=== PATIENT | female | born 1980 | race Caucasian/White ===

== ENCOUNTER 2017-06-15 22:32 | Inpatient (IN) | payer SELFPAY ==
[~2017-06-15] VITALS: Ht 162.6 cm; Wt 61.0 kg
[2017-06-15] MEDS ORDERED: diphenhydrAMINE INJ 50MG/ML VIAL (J1200) IM STA (22:52)
[2017-06-15] MEDS ORDERED: HALOPERIDOL 5 MG/ML VIAL (J1630) IM STA (22:52)
[2017-06-15 23:30] LABS: MEAN CORPUSCULAR HEMOGLOBIN 30.5 pg (27.0-33.0); MEAN CORPUSCULAR HGB CONC 34.3 g/dl (32.0-36.5); MEAN CORPUSCULAR VOLUME 88.9 fl (80.0-96.0); RED CELL DISTRIBUTION WIDTH 12.7 % (11.5-14.5); WHITE BLOOD COUNT 17.3 10^3/uL (4.0-10.0)
[2017-06-15 23:44] LABS: CONTROL LINE HCG INT CTR LINE PRESENT
[2017-06-16 00:01] LABS: ALBUMIN 4.5 GM/DL (3.2-5.2); ALBUMIN/GLOBULIN RATIO 1.36 (1.00-1.93); ALKALINE PHOSPHATASE 65 U/L (45-117); ALT/SGPT 19 U/L (12-78); ANION GAP 11 MEQ/L (8-16); AST/SGOT 17 U/L (15-37); BILIRUBIN,DIRECT 0.1 MG/DL (0.0-0.2); BILIRUBIN,TOTAL 0.4 MG/DL (0.2-1.0); BLOOD UREA NITROGEN 9 MG/DL (7-18); CALCIUM LEVEL 9.1 MG/DL (8.5-10.1); CARBON DIOXIDE LEVEL 23 MEQ/L (21-32); CHLORIDE LEVEL 105 MEQ/L (98-107); CREATININE FOR GFR 1.15 MG/DL (0.55-1.02); GLOMERULAR FILTRATION RATE 56.8 (>60); GLUCOSE, FASTING 103 MG/DL (70-105); POTASSIUM SERUM 3.6 MEQ/L (3.5-5.1); SODIUM LEVEL 139 MEQ/L (136-145); TOTAL PROTEIN 7.8 GM/DL (6.4-8.2)
[2017-06-16 00:21] LABS: METHADONE URINE NEGATIVE (NEGATIVE)
[2017-06-16] MEDS ORDERED: ASPI81CH PO (03:29)
[2017-06-16] MEDS ORDERED: MOM 30ML SUSPENSION UDC PO PRN (04:00)
[2017-06-16] MEDS ORDERED: MAALOX 30 ML SUSP *UDC PO PRN (04:00)
[2017-06-16] MEDS ORDERED: OLANZapine 10 MG TAB PO PRN (04:00)
[2017-06-16 07:02] VITALS: BP 101/58
[2017-06-16] MEDS: PALIPERIDONE 3 MG ER TAB (INVEGA) PO SCH ×2 (09:00→21:00)
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
[2017-06-16 18:00] VITALS: BP 131/80
[2017-06-16] MEDS: QUEtiapine FUMARATE 100 MG TAB PO SCH (21:00)
[2017-06-17 06:00] VITALS: BP 111/59
[2017-06-17] MEDS: PALIPERIDONE 3 MG ER TAB (INVEGA) PO SCH ×2 (08:55→21:00)
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
[2017-06-17 18:00] VITALS: BP 113/75
[2017-06-17] MEDS: QUEtiapine FUMARATE 100 MG TAB PO SCH (21:00)
[2017-06-18 06:00] VITALS: BP 107/57
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
[2017-06-18] MEDS: PALIPERIDONE 3 MG ER TAB (INVEGA) PO SCH ×2 (09:00→21:00)
[2017-06-18 18:38] VITALS: BP 112/65
[2017-06-18] MEDS: QUEtiapine FUMARATE 100 MG TAB PO SCH (21:00)
[2017-06-19 06:45] VITALS: BP 99/55
[2017-06-19 07:55] LABS: MEAN CORPUSCULAR HEMOGLOBIN 30.7 pg (27.0-33.0); MEAN CORPUSCULAR HGB CONC 33.8 g/dl (32.0-36.5); MEAN CORPUSCULAR VOLUME 90.9 fl (80.0-96.0); RED CELL DISTRIBUTION WIDTH 12.9 % (11.5-14.5); WHITE BLOOD COUNT 6.3 10^3/uL (4.0-10.0)
[2017-06-19 08:24] LABS: ALBUMIN 3.9 GM/DL (3.2-5.2); ALKALINE PHOSPHATASE 52 U/L (45-117); ALT/SGPT 20 U/L (12-78); ANION GAP 6 MEQ/L (8-16); AST/SGOT 15 U/L (15-37); BILIRUBIN,TOTAL 0.4 MG/DL (0.2-1.0); BLOOD UREA NITROGEN 10 MG/DL (7-18); CARBON DIOXIDE LEVEL 28 MEQ/L (21-32); CHLORIDE LEVEL 107 MEQ/L (98-107); CREATININE FOR GFR 0.86 MG/DL (0.55-1.02); GLOMERULAR FILTRATION RATE > 60.0 (>60); GLUCOSE, FASTING 82 MG/DL (70-105); POTASSIUM SERUM 4.3 MEQ/L (3.5-5.1); SODIUM LEVEL 141 MEQ/L (136-145); TOTAL PROTEIN 6.9 GM/DL (6.4-8.2)
[2017-06-19] MEDS: PALIPERIDONE 3 MG ER TAB (INVEGA) PO SCH ×2 (08:56→21:00)
[2017-06-19 18:00] VITALS: BP 103/57
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
[2017-06-19] MEDS: QUEtiapine FUMARATE 100 MG TAB PO SCH (21:00)
[2017-06-20 06:00] VITALS: BP 104/57
[2017-06-20] MEDS: PALIPERIDONE 3 MG ER TAB (INVEGA) PO SCH ×2 (08:33→20:33)
[2017-06-20 18:00] VITALS: BP 100/56
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
[2017-06-20] MEDS: QUEtiapine FUMARATE 100 MG TAB PO SCH (20:34)
[2017-06-21 06:37] VITALS: BP 90/54
[2017-06-21] MEDS: PALIPERIDONE 3 MG ER TAB (INVEGA) PO SCH (09:00)
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
[2017-06-21 18:18] VITALS: BP 109/73
[2017-06-21] MEDS: QUEtiapine FUMARATE 100 MG TAB PO SCH (20:19)
[2017-06-22 06:50] VITALS: BP 94/50
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
[2017-06-22 18:00] VITALS: BP 119/74
[2017-06-22] MEDS: QUEtiapine FUMARATE 100 MG TAB PO SCH (21:00)
[2017-06-23 06:25] VITALS: BP 99/52
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
[2017-06-23 18:58] VITALS: BP 109/69
[2017-06-23] MEDS: QUEtiapine FUMARATE 100 MG TAB PO SCH (21:00)
[2017-06-24 07:07] VITALS: BP 108/55
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
[2017-06-24] MEDS: QUEtiapine FUMARATE 100 MG TAB PO SCH (21:00)
[2017-06-25] MEDS: ACETAMINOPHEN TAB 650MG DOSE (2X325MG) PO PRN (03:45)
[2017-06-25 06:45] VITALS: BP 113/58
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
[2017-06-25 18:00] VITALS: BP 108/60
[2017-06-25] MEDS: QUEtiapine FUMARATE 100 MG TAB PO SCH (20:31)
[2017-06-26] MEDS: ACETAMINOPHEN TAB 650MG DOSE (2X325MG) PO PRN (03:15)
[2017-06-26 07:02] VITALS: BP 102/60
[2017-06-26] MEDS: QUEtiapine FUMARATE 100 MG TAB PO SCH (21:00)
[2017-06-27 06:35] VITALS: BP 100/56
[2017-06-27 18:00] VITALS: BP 104/56
[2017-06-27] MEDS: QUEtiapine FUMARATE 100 MG TAB PO SCH (21:00)
[2017-06-28 07:14] VITALS: BP 110/65
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
[2017-06-28 18:00] VITALS: BP 114/78
[2017-06-29 06:56] VITALS: BP 104/64
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
[2017-06-29 18:00] VITALS: BP 102/66
[2017-06-30 06:00] VITALS: BP 117/59
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
[2017-07-01 06:30] VITALS: BP 107/55
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
[2017-07-01 18:54] VITALS: BP 108/69
[2017-07-01] MEDS: ACETAMINOPHEN TAB 650MG DOSE (2X325MG) PO PRN (19:32)
[2017-07-02 07:14] VITALS: BP 122/59
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
[2017-07-02 18:00] VITALS: BP 106/60
[2017-07-03 07:11] VITALS: BP 111/59
[2017-07-03 18:00] VITALS: BP 107/62
[2017-07-04 07:17] VITALS: BP 106/56
[2017-07-04 18:00] VITALS: BP 105/52
[2017-07-05 06:30] VITALS: BP 98/63
[2017-07-05 18:00] VITALS: BP 107/63
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
[2017-07-06] MEDS: ACETAMINOPHEN TAB 650MG DOSE (2X325MG) PO PRN (01:56)
[2017-07-06 06:35] VITALS: BP 93/57
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
[2017-07-06 18:25] VITALS: BP 106/61
[2017-07-07] MEDS: ACETAMINOPHEN TAB 650MG DOSE (2X325MG) PO PRN ×2 (02:13→20:28)
[2017-07-07 06:24] VITALS: BP 103/59
--- NOTE | 2017-07-07 15:08 | MHIPN ---
DATE: 07/07/2017 HISTORY: 37-year-old female with history of traumatic brain injury (TBI) and paranoia admitted with paranoid delusions, threatening her family with a knife. Patient has been uncooperative during her hospitalization. She was yelling at staff. She had to be medicated in the emergency room. A knife was found hidden on her underpants. She was making statements such as "I'm not a pediatric solar sales manager." MEDICATIONS: The patient is not willing to take antipsychotic medication. Patient has refused to take Invega, Seroquel, and is now refusing Abilify. SUBJECTIVE: "You cannot keep me here." OBJECTIVE: No major changes from yesterday. Patient is angry, dismissive, paranoid, guarded, turning her head against this interviewer, unwilling to cooperative. Insight and judgment is very poor. MENTAL STATUS EXAMINATION: Patient is dressed in [facility]. Patient is refusing to cooperate with mental status examination. Patient is angry, irritable, anxious, uncooperative, delusional, paranoid. Insight and judgment is poor. PLAN: 1. Continue offering medication. 2. Treatment over objection initiated. 3. Continue close monitoring.
[2017-07-07 18:12] VITALS: BP 107/75
[2017-07-08 06:00] VITALS: BP 99/55
--- NOTE | 2017-07-08 15:35 | MHIPN ---
DATE: 07/08/2017 37-year-old female with history of traumatic brain injury (TBI) and psychosis admitted to our unit with paranoid delusions, threatening her family with a knife. She was uncooperative during the admitting process. She was yelling at staff. She had to be medicated in the emergency room. Patient was found with a hidden knife on her underparents. She was making statements such as "I'm not a pediatric senior production planner." MEDICATIONS: Patient is not willing to take psychotropic medications. Patient has refused to take Invega, Seroquel, and now is refusing Abilify. SUBJECTIVE: "I don't want to talk to you." OBJECTIVE: No major changes from yesterday. Patient continues psychotic, paranoid, guarded, angry, turning her head against the interviewer, and unwilling to talk to me. Insight and judgment is very poor. MENTAL STATUS EXAMINATION: Patient is dressed in [facility]. Patient is refusing to take medication, does not want to be interviewed, is focused on discharge, has no insight and judgment is very poor. PLAN: 1. Continue offering medication. 2. Treatment over objection has initiated. 3. Continue close monitoring.
[2017-07-08 18:00] VITALS: BP 110/70
[2017-07-09 06:46] VITALS: BP 99/62
--- NOTE | 2017-07-09 16:09 | MHIPN ---
DATE: 07/09/2017 A 37-year-old female with a history of traumatic brain injury (TBI) and psychosis, admitted to our unit on a 9.39 legal status. Patient was threatening her family with a knife. She was uncooperative with the admitting process. She was yelling at staff. She had to be medicated in her room. Patient was found with a hidden knife in her underpants. She was making statements such as "I'm not a pediatric health care technician." MEDICATIONS: Patient is not willing to take psychotropic medication. Patient has refused to take Invega, Seroquel, and Abilify. SUBJECTIVE: "I don't need anything. I need to get out of here." OBJECTIVE: No major changes. Patient continues paranoid, guarded, angry, and unwilling to discuss her problems. Her only statement is, "I don't need medication." Insight and judgment are poor. MENTAL STATUS EXAMINATION: Patient dressed in [facility]. Patient is refusing to take her medication. Patient does not want to be interviewed and is mostly uncooperative. Insight and judgment are very poor. PLAN: 1. Continue offering medication. 2. Treatment over objection initiated. 3. Continue close monitoring.
[2017-07-09 18:00] VITALS: BP 103/68
[2017-07-10 06:50] VITALS: BP 94/50
[2017-07-10 18:04] VITALS: BP 98/58
[2017-07-11 06:00] VITALS: BP 102/60
[2017-07-11 10:19] VITALS: BP 102/60
[2017-07-11 18:00] VITALS: BP 119/71
[2017-07-12 06:29] VITALS: BP 106/57
[2017-07-12] MEDS: **PENDING PPD ENTRY XX SCH (09:00)
--- NOTE | 2017-07-12 14:44 | MHIPN ---
DATE: 07/12/2017 37-year-old female with history of traumatic brain injury (TBI) and psychosis admitted to our unit on a 9.39 legal status. The patient was threatening her family with a knife prior to admission. She was uncooperative with the admitting process and staff. She was yelling and was agitated. She had to be medicated in the emergency room. A knife was found hidden in her underpants. MEDICATIONS: The patient is unwilling to take psychotropic medication. The patient has refused to take Invega, Seroquel, and now is refusing Abilify. SUBJECTIVE: "I don't need treatment". OBJECTIVE: No major changes. The patient continues guarded, angry, unwilling to discuss her problems. "There is nothing wrong with me. I don't need medication." Insight and judgment is very poor. MENTAL STATUS EXAMINATION: The patient is unwilling to participate on mental status examination. Continues to be uncooperative and unwilling to take any medication. Her insight and judgment are very poor. PLAN: 1. Continue offering medication. 2. Treatment over objection initiated. 3. Continue close monitoring.
[2017-07-12] MEDS: ACETAMINOPHEN TAB 650MG DOSE (2X325MG) PO PRN (17:54)
[2017-07-12 18:00] VITALS: BP 130/69
[2017-07-13] MEDS: ACETAMINOPHEN TAB 650MG DOSE (2X325MG) PO PRN (02:05)
[2017-07-13 06:59] VITALS: BP 107/60
[2017-07-13] MEDS: **PENDING PPD ENTRY XX SCH (08:51)
[2017-07-13] MEDS ORDERED: TUBERCULIN PPD 5 UNITS/0.1 ML ID ONE (10:00)
[2017-07-13] MEDS ORDERED: BENZTROPINE 1 MG TAB PO PRN (14:45)
--- NOTE | 2017-07-13 15:24 | IPN ---
DATE: 07/13/2017 A 37-year-old female with history of traumatic brain injury (TBI) and psychosis admitted to our unit on a 9.39 legal status. The patient was threatening her family with a knife prior to admission. She was uncooperative with the admitting process and staff. She was yelling and was agitated. She had to be medicated at the emergency room (ER). A knife was found hidden in her underpants. MEDICATIONS: The patient has been unwilling to take psychotropic medication. The patient has refused to take Invega, Seroquel, and now is refusing Abilify. SUBJECTIVE: "I don't need to be here." OBJECTIVE: No major changes. The patient continues to be guarded, angry, unwilling to discuss her problems. Today, she has a court date for treatment over objection. MENTAL STATUS EXAMINATION: The patient is not willing to participate in mental status, is uncooperative and unwilling to take medications. Her insight and judgment is very poor. PLAN: 1. Continue offering medication. 2. Treatment over objection in progress. 3. Continue close monitoring.
[2017-07-13 18:00] VITALS: BP 116/65
[2017-07-13] MEDS ORDERED: HALOPERIDOL 5 MG TAB PO SCH (21:00)
[2017-07-13] MEDS ORDERED: OLANZapine INTRAMUSCULAR 10 MG VIAL (S0166) IM ONE (22:45)
[2017-07-13] MEDS: risperiDONE 1 MG TAB PO SCH (23:04)
[2017-07-14 06:35] VITALS: BP 99/58
[2017-07-14] MEDS: **PENDING PPD ENTRY XX SCH (08:15)
[2017-07-14] MEDS: risperiDONE 1 MG TAB PO SCH ×2 (08:15→18:00)
[2017-07-14] MEDS ORDERED: OLANZapine INTRAMUSCULAR 10 MG VIAL (S0166) IM SCH (09:00)
[2017-07-14] MEDS ORDERED: PPD DOCUMENTATION ENTRY MISC XX SCH (10:00)
[2017-07-14] MEDS: ACETAMINOPHEN TAB 650MG DOSE (2X325MG) PO PRN (14:59)
[2017-07-14] MEDS: OLANZapine INTRAMUSCULAR 10 MG VIAL (S0166) IM SCH (18:04)
--- NOTE | 2017-07-14 21:05 | IPN ---
DATE: 07/14/2017 A 37-year-old female with history of traumatic brain injury (TBI) and psychosis admitted to our unit on a 9.39 legal status. The patient was threatening her family with a knife prior to admission. She was uncooperative with the admitting process and staff. She was yelling and agitated. She had to be medicated at the emergency room (ER). A knife was found hidden in her underpants. MEDICATIONS: Risperdal 1 mg by mouth twice a day or Zyprexa 5 mg by mouth twice a day if patient refuses to take Risperdal. SUBJECTIVE: "I don't want to speak with you. " OBJECTIVE: No major changes. The patient refused to talk to me. She remains guarded, angry, unwilling to discuss her problems. She has been refusing by mouth medication. Treatment over objection was presented yesterday in court and the associate brand manager decided that the patient needs to stay in the hospital for treatment. Patient is getting 5 mg IM of Zyprexa twice a day because she is refusing 1 mg of Risperdal twice a day. She is tolerating well the medication. MENTAL STATUS EXAMINATION: The patient is not willing to talk to me or participate in the interview. Insight and judgment is very poor. Patient continues to be very guarded, angry. She is not interacting with other patients and staff, stays by herself in her room. PLAN: 1. Continue with current medication as approved by court. She is to take Risperdal 1 mg by mouth twice a day or Zyprexa 5 mg IM twice a day. 2. Continue close observation.
[2017-07-15] MEDS: risperiDONE 1 MG TAB PO SCH ×2 (09:00→17:51)
[2017-07-15] MEDS: **PENDING PPD ENTRY XX SCH (09:00)
[2017-07-15] MEDS: OLANZapine INTRAMUSCULAR 10 MG VIAL (S0166) IM SCH ×2 (09:59→17:51)
--- NOTE | 2017-07-15 21:31 | MHIPN ---
DATE: 07/15/2017 A 37-year-old female with a history of traumatic brain injury (TBI) and psychosis, admitted to our unit on a 9.39 legal status. Patient was threatening her family with a knife prior to admission. She was uncooperative with the admitting process and staff. She was yelling and agitated. She had to be medicated in the emergency room. A knife was found hidden in her underpants. MEDICATIONS: - Risperdal 1 mg by mouth twice a day or Zyprexa 5 mg intramuscularly (IM) twice a day if she refuses to take the Risperdal as approved by court under treatment over objection. SUBJECTIVE: "Nothing is wrong with me." OBJECTIVE: No major changes. Patient refusing to take medication by mouth, so she has to get Zyprexa 5 mg IM twice a day. I tried to convince the patient to allow us to bring her family or anybody she decides as support system for a family meeting in order to try to get collateral information and support that could be helpful in the discharge process, but she has denied. She states, "nothing is wrong with me." She makes statements such as, "The doctor you saw me for a few minutes and prescribed medication that is probably better for him than for me." She continues to be angry, has no insight, appears to be paranoid and delusional. May be reacting to internal stimuli, but she denies any symptoms in order to be discharged. Patient does not interact at all with any other patient and staff and stays by herself in the room. MENTAL STATUS EXAMINATION: Patient unwilling to participate in the interview or mental status examination. Her insight and judgment is very poor, is guarded, angry, appears paranoid and reacting to internal stimuli. PLAN: 1. Continue to offer medication as prescribed. 2. Continue close observation.
[2017-07-16 06:59] VITALS: BP 101/51
[2017-07-16] MEDS: OLANZapine INTRAMUSCULAR 10 MG VIAL (S0166) IM SCH ×2 (08:43→18:03)
[2017-07-16] MEDS: risperiDONE 1 MG TAB PO SCH ×2 (09:00→18:00)
[2017-07-16] MEDS: **PENDING PPD ENTRY XX SCH (09:00)
[2017-07-17 07:16] VITALS: BP 103/60
[2017-07-17] MEDS: risperiDONE 1 MG TAB PO SCH ×2 (09:00→18:00)
[2017-07-17] MEDS: **PENDING PPD ENTRY XX SCH (09:00)
[2017-07-17] MEDS: OLANZapine INTRAMUSCULAR 10 MG VIAL (S0166) IM SCH ×2 (09:38→18:18)
--- NOTE | 2017-07-17 14:34 | MHIPN ---
DATE: 07/16/2017 HISTORY: 37-year-old female with history of traumatic brain injury (TBI) and psychosis admitted to our unit on a 9.39 legal status. The patient was threatening her family with a knife prior to admission. She was uncooperative with staff at admission. She was yelling and was agitated. A knife was found hidden in her underpants at the ED. MEDICATIONS: - Risperdal 1 mg by mouth twice a day or Zyprexa 5 mg IM twice a day if she refuses to take Risperdal SUBJECTIVE: "You need to take me off medication". OBJECTIVE: The patient continues dismissive, angry, irritable. She is not interacting with other patients and staff. She is refusing to take by mouth Risperdal so she is being treated with Zyprexa 5 mg IM twice a day. The patient is unwilling to cooperate. She is unwilling to sign the release of information for any relative or support and is not letting us to talk to anyone. MENTAL STATUS EXAMINATION: The patient is unwilling to participate with the interview or mental status examination. She is guarded, angry, appears paranoid. May be reacting to internal stimuli. Insight and judgment is very poor. PLAN: 1. Continue offering medications as prescribed. 2. Continue close observation.
[2017-07-17 18:00] VITALS: BP 90/52
[2017-07-18 06:00] VITALS: BP 108/57
[2017-07-18] MEDS: OLANZapine INTRAMUSCULAR 10 MG VIAL (S0166) IM SCH ×2 (10:06→18:19)
[2017-07-18] MEDS: **PENDING PPD ENTRY XX SCH (10:06)
[2017-07-18] MEDS: risperiDONE 1 MG TAB PO SCH ×2 (10:06→18:00)
[2017-07-18] MEDS: ACETAMINOPHEN TAB 650MG DOSE (2X325MG) PO PRN (11:17)
[2017-07-18 18:00] VITALS: BP 102/55
[2017-07-19 06:23] VITALS: BP 102/56
[2017-07-19] MEDS: **PENDING PPD ENTRY XX SCH (10:35)
[2017-07-19] MEDS: risperiDONE 1 MG TAB PO SCH ×2 (10:35→17:57)
[2017-07-19] MEDS: OLANZapine INTRAMUSCULAR 10 MG VIAL (S0166) IM SCH ×2 (10:46→17:59)
[2017-07-19 18:00] VITALS: BP 96/66
[2017-07-20 06:47] VITALS: BP 97/59
[2017-07-20] MEDS: **PENDING PPD ENTRY XX SCH (09:00)
[2017-07-20] MEDS: risperiDONE 1 MG TAB PO SCH ×2 (09:00→18:00)
[2017-07-20] MEDS: OLANZapine INTRAMUSCULAR 10 MG VIAL (S0166) IM SCH ×2 (10:44→18:08)
--- NOTE | 2017-07-20 13:33 | MHIPN ---
DATE: 07/19/2017 37-year-old female with history of traumatic brain injury (TBI) and psychosis admitted to our unit on 939 legal status. The patient was threatening her family with a knife prior to admission. She was uncooperative with staff. She was yelling and agitated. A knife was found hidden in her underpants at the emergency department during admission. MEDICATIONS: - Risperdal 1 mg by mouth twice a day or Zyprexa 5 mg IM twice a day if she refuses to take the Risperdal (as per treatment over objection). SUBJECTIVE: I need to go home. OBJECTIVE: I tried to discuss the treatment with the patient. The patient is dismissive, angry, irritable and impulsive. I tried to tell her that it could be beneficial to set up a meeting with her support system, family or whoever she wants. She again stated that "this is offensive." "I can take care of myself." Patient has been unwilling to engage in any one-to-one conversations with myself or any of the staff. The patient does not interact with other patients. The patient may be reacting to internal stimuli. She is guarded and appears paranoid. MENTAL STATUS EXAMINATION: Patient is dressed in [facility]. Patient is unwilling to participate in the interview and mental status examination. She is dismissive, guarded, angry and appears paranoid. Insight and judgment appears to be very poor. PLAN: 1. Continue offering medications as prescribed and continue close observation.
[2017-07-20 18:00] VITALS: BP 110/70
[2017-07-21 07:10] VITALS: BP 95/59
[2017-07-21] MEDS: risperiDONE 1 MG TAB PO SCH ×2 (09:00→17:53)
[2017-07-21] MEDS: **PENDING PPD ENTRY XX SCH (09:00)
[2017-07-21] MEDS: OLANZapine INTRAMUSCULAR 10 MG VIAL (S0166) IM SCH ×2 (09:32→17:53)
--- NOTE | 2017-07-21 10:40 | MHIPN ---
DATE OF SERVICE: 07/20/2017 37-year-old female with history of traumatic brain injury (TBI) and psychosis admitted to our unit on a 9.39 legal status. Patient was threatening her family with a knife prior to admission. She was uncooperative with staff. She was yelling and agitated. The knife was found hidden in her underpants at the emergency department during admission. MEDICATIONS: The patient is following a treatment over objection, but she is refusing to take by mouth medication. She is taking Zyprexa 5 mg IM twice a day. SUBJECTIVE: "I don't need medication". OBJECTIVE: No major changes. Patient continues dismissive, angry, irritable and impulsive and is not willing to have any interaction with myself or staff. The patient continues guarded and appears paranoid. MENTAL STATUS EXAMINATION: Patient is dressed in [facility]. Patient is unwilling to participate in mental status. She is dismissive, guarded, angry and appears paranoid. Insight and judgment is poor. PLAN: Continue offering the medications as prescribed and continue close observation.
[2017-07-21 18:23] VITALS: BP 114/72
--- NOTE | 2017-07-21 20:15 | MHIPN ---
DATE: 07/21/2017 37-year-old female with a history of traumatic brain injury and psychosis, admitted on a 9.39 legal status. The patient was threatening her family with a knife prior to admission. She was uncooperative with staff. She was yelling and agitated. A knife was found hidden in her underpants during the admitting process at the emergency room. MEDICATIONS: The patient is following a Treatment Over Objection pharmacological plan. The patient is taking Risperdal 1 mg by mouth twice a day or Zyprexa 5 mg intramuscularly twice a day if she refuses medication by mouth. SUBJECTIVE: "I just need a ride home." OBJECTIVE: No major changes. The patient continues being angry, irritable, dismissive. Does not interact with other patients and staff. Stays by herself in the room and is refusing to take oral medications. MENTAL STATUS EXAMINATION: The patient is dressed in [facility]. The patient is willing to participate in one-to-one interaction for mental status examination. The patient is dismissive, guarded, angry and appears paranoid. Insight and judgment are poor. PLAN: 1. Continue offering medications as prescribed.
[2017-07-22 06:38] VITALS: BP 105/58
[2017-07-22] MEDS: risperiDONE 1 MG TAB PO SCH ×2 (09:00→18:00)
[2017-07-22] MEDS: **PENDING PPD ENTRY XX SCH (09:00)
[2017-07-22] MEDS: OLANZapine INTRAMUSCULAR 10 MG VIAL (S0166) IM SCH ×2 (10:33→18:07)
--- NOTE | 2017-07-22 16:57 | MHIPN ---
DATE: 07/22/2017 A 37-year-old female with a history of traumatic brain injury (TBI) and psychosis, admitted on a 9.39 legal status. The patient was threatening her family with a knife prior to admission. She was uncooperative with the staff. She was yelling and agitated. A knife was found hidden in her underpants during the admitting process in the emergency room. MEDICATIONS: - Risperdal 1 mg by mouth twice a day or Zyprexa 5 mg by mouth twice a day. SUBJECTIVE: "I don't need to be here." OBJECTIVE: The patient continues angry, irritable, dismissive, does not interact with patients and staff, stays by herself most of the time in her room. Patient continues to refuse to take oral medications. MENTAL STATUS EXAMINATION: Patient dressed in [facility], unwilling to participate in one-to-one interaction, unwilling to cooperate with mental status. Insight and judgment is very poor. Patient is guarded and appears paranoid. PLAN: Continue Risperdal 1 mg by mouth twice a day or Zyprexa 5 mg IM twice a day.
[2017-07-22 18:00] VITALS: BP 113/76
[2017-07-23 06:31] VITALS: BP 114/65
[2017-07-23] MEDS: risperiDONE 1 MG TAB PO SCH ×2 (09:00→18:00)
[2017-07-23] MEDS: **PENDING PPD ENTRY XX SCH (09:00)
[2017-07-23] MEDS: OLANZapine INTRAMUSCULAR 10 MG VIAL (S0166) IM SCH ×2 (09:44→18:22)
--- NOTE | 2017-07-23 16:34 | MHIPN ---
DATE: 07/23/2017 37-year-old female with history of traumatic brain injury (TBI) and psychosis, admitted to our unit on a 9.39 legal status. Patient was threatening her family with a knife prior to admission. She was uncooperative with staff. She was yelling and agitated. A knife was found hidden in her underpants during the admitting process at the emergency department (ED). MEDICATIONS: - Risperdal 1 mg by mouth twice a day or Zyprexa 5 mg by mouth twice a day. SUBJECTIVE: "I don't need a ride home." OBJECTIVE: Patient continues irritable, dismissive, angry, suspicious and appears paranoid. Patient continues to refuse to take oral medication. MENTAL STATUS EXAMINATION: Patient dressed in [facility], unwilling to participate in one-to-one interaction or mental status examination. Insight and judgment is very poor. Patient is guarded and paranoid. No insight. PLAN: Continue Risperdal 1 mg by mouth twice a day or Zyprexa 5 mg intramuscular (IM) twice a day.
[2017-07-23 18:00] VITALS: BP 102/58
[2017-07-24 06:42] VITALS: BP 100/56
[2017-07-24] MEDS: **PENDING PPD ENTRY XX SCH (09:00)
[2017-07-24] MEDS: risperiDONE 1 MG TAB PO SCH ×2 (09:00→17:53)
[2017-07-24] MEDS: OLANZapine INTRAMUSCULAR 10 MG VIAL (S0166) IM SCH ×2 (09:27→18:18)
[2017-07-24 18:00] VITALS: BP 90/56
[2017-07-25 07:21] VITALS: BP 99/55
[2017-07-25] MEDS: risperiDONE 1 MG TAB PO SCH ×2 (08:58→18:00)
[2017-07-25] MEDS: **PENDING PPD ENTRY XX SCH (09:00)
[2017-07-25] MEDS: OLANZapine INTRAMUSCULAR 10 MG VIAL (S0166) IM SCH ×2 (09:33→18:17)
[2017-07-25 18:45] VITALS: BP 125/88
[2017-07-26 07:21] VITALS: BP 105/59
[2017-07-26 07:23] VITALS: BP 105/59
[2017-07-26] MEDS: risperiDONE 1 MG TAB PO SCH ×2 (09:00→18:00)
[2017-07-26] MEDS: **PENDING PPD ENTRY XX SCH (09:00)
[2017-07-26] MEDS: OLANZapine INTRAMUSCULAR 10 MG VIAL (S0166) IM SCH ×2 (10:09→18:13)
[2017-07-26 18:00] VITALS: BP 114/71
--- NOTE | 2017-07-27 05:59 | MHIPN ---
DATE: 07/26/2017 HISTORY: A 37-year-old female with history of traumatic brain injury (TBI) and psychosis, admitted to our unit on a 939 legal status. The patient was threatening her family with a knife prior to admission. She was uncooperative with the staff. She was yelling and agitated. A knife was found hidden in her underpants during the admitting process at the emergency department (ED). MEDICATIONS: Risperdal 1 mg by mouth twice a day or Zyprexa 5 mg intramuscular (IM) twice a day. SUBJECTIVE: "I don't need medication." OBJECTIVE: No major changes. Patient continues irritable, dismissive, angry, and guarded. Appears paranoid. Patient continues to refuse to take oral medication. MENTAL STATUS EXAMINATION: Patient dressed in [facility]. Patient continues to be unwilling to participate in one-to-one interaction or mental status examination. Insight and judgment are very poor. Patient is guarded, paranoid, and has no insight. PLAN: Continue Risperdal 1 mg by mouth twice a day or Zyprexa 5 mg IM twice a day.
[2017-07-27 07:02] VITALS: BP 121/66
[2017-07-27] MEDS: **PENDING PPD ENTRY XX SCH (09:00)
[2017-07-27] MEDS: risperiDONE 1 MG TAB PO SCH ×2 (09:00→18:00)
[2017-07-27] MEDS: OLANZapine INTRAMUSCULAR 10 MG VIAL (S0166) IM SCH ×2 (09:49→18:00)
--- NOTE | 2017-07-27 17:36 | IPN ---
DATE: 07/27/2017 HISTORY: A 37-year-old female with a history of traumatic brain injury (TBI) and psychosis admitted to our unit on a 9.39 legal status. Patient was threatening her family with a knife prior to admission. She was found uncooperative with staff. She was yelling and agitated. A knife was found hidden in her underpants during the admitting process at the emergency department. MEDICATIONS: Risperdal 1 mg by mouth twice a day or Zyprexa 5 mg intramuscular (IM) twice a day SUBJECTIVE: "I don't need medication." OBJECTIVE: No major changes. Patient continues irritable, dismissive, angry, guarded, paranoid. Patient refusing to take oral medication. I try again to discuss the treatment plan with the patient and ask her if she would be willing to have anybody of her support system to come for a meeting. She stated that her mother is now out of the hospital, and ask her if she would be willing to have a meeting with her mother to discuss treatment plan. She got angry and refused to do so. MENTAL STATUS EXAMINATION: Patient dressed in [facility]. Patient continues to be unwilling to participate in one-to-one interaction or mental status examination. Insight and judgment are poor. Patient remains guarded, paranoid with no insight. PLAN: Continue Risperdal 1 mg by mouth twice a day or Zyprexa 5 mg IM twice a day.
[2017-07-27 18:13] VITALS: BP 115/70
[2017-07-28 06:36] VITALS: BP 102/59
[2017-07-28] MEDS: OLANZapine INTRAMUSCULAR 10 MG VIAL (S0166) IM SCH ×2 (09:00→17:34)
[2017-07-28] MEDS: **PENDING PPD ENTRY XX SCH (09:00)
[2017-07-28] MEDS: risperiDONE 1 MG TAB PO SCH ×2 (09:14→17:31)
[2017-07-28 18:00] VITALS: BP 125/60
--- NOTE | 2017-07-29 06:10 | IPN ---
DATE: 07/28/2017 HISTORY: A 37-year-old female with history of traumatic brain injury (TBI) and psychosis, admitted to our unit on a 939 legal status. The patient was threatening her family with a knife prior to admission. She was uncooperative with staff. She was yelling and agitated. A knife was found hidden in her underpants during the admitting process at the emergency department. MEDICATIONS: Risperdal 1 mg by mouth twice a day or Zyprexa 5 mg intramuscular (IM) twice a day. SUBJECTIVE: "I need a ride home." OBJECTIVE: No major changes. Continues irritable, dismissive, angry and guarded, paranoid, refusing to take oral medication. Again today, I explored the possibility that she allows as to have a meeting with a relative, but she turned down the offers. She becomes angry when such a meeting is proposed. MENTAL STATUS EXAMINATION: Patient dressed in [facility]. Patient unwilling to participate in one-to-one interaction. She says that she does not need help and the only thing she needs is to go home. Insight and judgment are poor. The patient remains guarded, paranoid with no insight. PLAN: Continue Risperdal 1 mg by mouth twice a day or Zyprexa 5 mg IM twice a day.
[2017-07-29 06:30] VITALS: BP 106/59
[2017-07-29] MEDS: risperiDONE 1 MG TAB PO SCH ×2 (09:00→18:00)
[2017-07-29] MEDS: **PENDING PPD ENTRY XX SCH (09:00)
[2017-07-29] MEDS: OLANZapine INTRAMUSCULAR 10 MG VIAL (S0166) IM SCH ×2 (10:45→18:36)
[2017-07-29 18:00] VITALS: BP 129/73
--- NOTE | 2017-07-30 02:40 | MHIPN ---
DATE OF SERVICE: 07/29/2017 HISTORY: 37-year-old female with history of traumatic brain injury (TBI) and psychosis, admitted to our unit on a 9.39 legal status. The patient was threatening her family with a knife prior to admission. She was uncooperative with the staff. She was yelling and agitated. A knife was found hidden in her underpants during the admitting process at the emergency department (ED). MEDICATIONS: - Risperdal 1 mg by mouth twice a day or Zyprexa 5 mg intramuscularly (IM) twice a day SUBJECTIVE: "I need to go home." OBJECTIVE: Patient continues irritable and dismissive, at times angry and guarded. Refusing to take oral medication. Patient is going to some therapeutic activities that have to do with arts and crafts, but has very minimal interaction with other patients. MENTAL STATUS EXAMINATION: Patient dressed in [facility]. Patient is unwilling to participate in one-to-one interaction, states she does not need help and that the only thing she needs is to go home. Insight and judgment is very poor. PLAN: Continue Risperdal 1 mg by mouth twice a day or Zyprexa 5 mg by intramuscularly (IM) twice a day.
[2017-07-30 06:24] VITALS: BP 102/55
[2017-07-30] MEDS: **PENDING PPD ENTRY XX SCH (09:00)
[2017-07-30] MEDS: risperiDONE 1 MG TAB PO SCH ×2 (09:00→18:00)
[2017-07-30] MEDS: OLANZapine INTRAMUSCULAR 10 MG VIAL (S0166) IM SCH ×2 (10:28→19:04)
[2017-07-30] MEDS: ACETAMINOPHEN TAB 650MG DOSE (2X325MG) PO PRN (10:31)
[2017-07-30 18:00] VITALS: BP 129/73
--- NOTE | 2017-07-31 03:53 | MHIPN ---
DATE OF SERVICE: 07/30/2017 HISTORY: 37-year-old female with history of traumatic brain injury (TBI) and psychosis admitted to our unit on a 9.39 legal status. Patient was threatening her family with a knife prior to admission. She was uncooperative with staff. She was yelling and agitated. A knife was found hidden in her underpants during the admitting process in the emergency department. MEDICATIONS: - Risperdal 1 mg by mouth twice a day or Zyprexa 5 mg intramuscularly (IM) twice a day SUBJECTIVE: "Send me home." OBJECTIVE: Patient is less irritable and aggressive, although she continues to refuse to release any information or to make any collateral contact with family or support system. She appears not to be as paranoid and guarded. She continues to refuse oral medication and received Zyprexa 5 mg IM twice a day. MENTAL STATUS EXAMINATION: Patient dressed in [facility]. Patient is unwilling to participate in one-to-one or mental status examination. She continues focus on going home and discharge issues and denies any symptoms. Attention, memory and concentration cannot be tested. Patient is less paranoid and irritable. Does not appear to be reacting to internal stimuli. Insight is poor. Judgment is fair. PLAN: Continue Risperdal 1 mg by mouth twice a day or Zyprexa 5 mg intramuscularly (IM) twice a day.
[2017-07-31 06:29] VITALS: BP 97/55
[2017-07-31] MEDS: risperiDONE 1 MG TAB PO SCH ×2 (09:00→18:00)
[2017-07-31] MEDS: **PENDING PPD ENTRY XX SCH (09:00)
[2017-07-31] MEDS: OLANZapine INTRAMUSCULAR 10 MG VIAL (S0166) IM SCH ×2 (10:06→18:02)
[2017-07-31 18:00] VITALS: BP_SYST 100; BP_SYST 119; BP_DIAS 64; BP_DIAS 66
[2017-08-01 06:00] VITALS: BP 104/57
[2017-08-01] MEDS: OLANZapine INTRAMUSCULAR 10 MG VIAL (S0166) IM SCH ×2 (09:00→18:38)
[2017-08-01] MEDS: risperiDONE 1 MG TAB PO SCH ×2 (09:00→18:00)
[2017-08-01] MEDS: **PENDING PPD ENTRY XX SCH (09:00)
[2017-08-01 18:00] VITALS: BP 109/64
[2017-08-02] MEDS: ACETAMINOPHEN TAB 650MG DOSE (2X325MG) PO PRN (01:46)
[2017-08-02 06:23] VITALS: BP 123/58
[2017-08-02] MEDS: risperiDONE 1 MG TAB PO SCH ×2 (09:00→18:00)
[2017-08-02] MEDS: **PENDING PPD ENTRY XX SCH (09:00)
[2017-08-02] MEDS: OLANZapine INTRAMUSCULAR 10 MG VIAL (S0166) IM SCH ×2 (09:49→18:09)
--- NOTE | 2017-08-02 16:04 | MHIPN ---
DATE: 08/02/2017 HISTORY: A 37-year-old female with history of traumatic brain injury (TBI) and psychosis admitted to our unit on a 9.39 legal status. The patient was threatening her family with a knife prior to admission. She was uncooperative with staff. She was yelling and agitated. A knife was found hidden in her underpants during the admitting process in the emergency department. MEDICATIONS: Risperdal 1 mg by mouth twice a day or Zyprexa 5 mg intramuscularly (IM) twice a day. SUBJECTIVE: "I need a ride home." OBJECTIVE: The patient appears to be less irritable and aggressive, although she continues to refuse to release information or to make collateral information with family members. The patient is not as paranoid or as guarded. The patient continues to refuse oral medication and is receiving Zyprexa 5 mg intramuscularly (IM) twice a day. MENTAL STATUS EXAMINATION: The patient is dressed in [facility]. The patient is not receptive to one-to-one therapy. She continues focus on discharge issues and is unwilling to cooperate with mental status examination. The patient appears less paranoid and irritable. Does not appear to be reacting to internal stimuli. Insight is poor. Judgment is fair. PLAN: Continue Risperdal 1 mg by mouth twice a day or Zyprexa 5 mg intramuscularly (IM) twice a day.
[2017-08-02 18:00] VITALS: BP 108/62
[2017-08-03 06:22] VITALS: BP 100/52
[2017-08-03] MEDS: **PENDING PPD ENTRY XX SCH (09:00)
[2017-08-03] MEDS: risperiDONE 1 MG TAB PO SCH (09:00)
[2017-08-03] MEDS: OLANZapine INTRAMUSCULAR 10 MG VIAL (S0166) IM SCH (09:25)
[2017-08-03] MEDS ORDERED: RISP1TAB42 PO (09:25)
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
== END 2017-08-03 11:20 | disposition home or self-care (01) | DRG 751 ==
LOC: M ED 22:32 → M ED INP 06-16 03:48 → M PSY 06-16 05:20
PROVIDERS: ADMIT Psychiatry & Neurology Psychiatry; ATTEND Psychiatry & Neurology Psychiatry
DX: F29 Unspecified psychosis not due to a substance or known physiological condition (principal); D72.829 Elevated white blood cell count, unspecified; R53.83 Other fatigue

== ENCOUNTER 2018-01-04 10:06 | Inpatient (IN) | payer MEDICAID, SELFPAY ==
[2018-01-04 10:48] LABS: HEMOGLOBIN 13.5 g/dl (12.0-15.5); MEAN CORPUSCULAR HEMOGLOBIN 30.6 pg (27.0-33.0); MEAN CORPUSCULAR HGB CONC 34.6 g/dl (32.0-36.5); MEAN CORPUSCULAR VOLUME 88.4 fl (80.0-96.0); PLATELET COUNT, AUTOMATED 327 10^3/uL (150-450); RED BLOOD COUNT 4.41 10^6/uL (4.00-5.40); RED CELL DISTRIBUTION WIDTH 13.1 % (11.5-14.5); WHITE BLOOD COUNT 11.7 10^3/uL (4.0-10.0)
[2018-01-04 10:54] LABS: CONTROL LINE HCG INT CTR LINE PRESENT; HCG, SERUM QUALITATIVE NEGATIVE (NEGATIVE)
[2018-01-04 11:12] LABS: ACETAMINOPHEN LEVEL < 2.0 UG/ML (10.0-30.0); ALBUMIN 3.9 GM/DL (3.2-5.2); ALBUMIN/GLOBULIN RATIO 1.18 (1.00-1.93); ALKALINE PHOSPHATASE 59 U/L (45-117); ALT/SGPT 16 U/L (12-78); ANION GAP 7 MEQ/L (8-16); AST/SGOT 17 U/L (7-37); BILIRUBIN,DIRECT < 0.1 MG/DL (0.0-0.2); BILIRUBIN,TOTAL 0.2 MG/DL (0.2-1.0); BLOOD UREA NITROGEN 16 MG/DL (7-18); CALCIUM LEVEL 8.6 MG/DL (8.5-10.1); CARBON DIOXIDE LEVEL 24 MEQ/L (21-32); CHLORIDE LEVEL 112 MEQ/L (98-107); CREATININE FOR GFR 1.01 MG/DL (0.55-1.30); ETHYL ALCOHOL (ETHANOL) < 0.003 % (0.000-0.010); GLOMERULAR FILTRATION RATE > 60.0 (>60); GLUCOSE, FASTING 96 MG/DL (70-100); POTASSIUM SERUM 4.3 MEQ/L (3.5-5.1); SALICYLATE LEVEL < 1.7 MG/DL (5.0-30.0); SODIUM LEVEL 143 MEQ/L (136-145); TOTAL PROTEIN 7.2 GM/DL (6.4-8.2)
[2018-01-04 12:23] LABS: AMPHETAMINES LEVEL URINE NEGATIVE (NEGATIVE); BARBITURATES URINE NEGATIVE (NEGATIVE); BENZODIAZEPINES URINE NEGATIVE (NEGATIVE); CANNABINOIDS URINE NEGATIVE (NEGATIVE); COCAINE METABOLITE URINE NEGATIVE (NEGATIVE); METHADONE URINE NEGATIVE (NEGATIVE); OPIATES URINE NEGATIVE (NEGATIVE); PHENCYCLIDINE URINE NEGATIVE (NEGATIVE)
[2018-01-04] MEDS ORDERED: MOM 30ML SUSPENSION UDC PO (14:15)
[2018-01-04] MEDS ORDERED: HALOPERIDOL 5 MG/ML VIAL (J1630) As Ordered (16:21)
[2018-01-04] MEDS: diphenhydrAMINE INJ 50MG/ML VIAL (J1200) IM (16:37)
[2018-01-04] MEDS: HALOPERIDOL 5 MG/ML VIAL (J1630) IM (16:37)
[2018-01-04] MEDS: LORazepam 2 MG/ML VIAL (J2060) IM (16:37)
[2018-01-04] MEDS: LORazepam 2 MG TAB PO (16:53)
[2018-01-04] MEDS ORDERED: OLANZapine ORAL DISINTEGRATING TAB 5MG PO (21:00)
[2018-01-04] MEDS ORDERED: traZODone 50 MG TAB PO (21:00)
[2018-01-09] MEDS: ACETAMINOPHEN TAB 650MG DOSE (2X325MG) PO ×2 (02:20→17:06)
[2018-01-11] MEDS: ACETAMINOPHEN TAB 650MG DOSE (2X325MG) PO ×2 (06:02→12:28)
[2018-01-13] MEDS: PALIPERIDONE 3 MG ER TAB (INVEGA) PO (20:50)
[2018-01-14] MEDS: PALIPERIDONE 3 MG ER TAB (INVEGA) PO ×2 (08:57→20:40)
[2018-01-14] MEDS: ACETAMINOPHEN TAB 650MG DOSE (2X325MG) PO (20:39)
[2018-01-15] MEDS: PALIPERIDONE 3 MG ER TAB (INVEGA) PO ×2 (09:00→21:00)
[2018-01-15] MEDS: ACETAMINOPHEN TAB 650MG DOSE (2X325MG) PO (11:53)
[2018-01-16] MEDS: ACETAMINOPHEN TAB 650MG DOSE (2X325MG) PO (05:18)
[2018-01-16] MEDS: PALIPERIDONE 3 MG ER TAB (INVEGA) PO ×2 (08:45→21:00)
[2018-01-17] MEDS: ACETAMINOPHEN TAB 650MG DOSE (2X325MG) PO ×2 (03:52→16:10)
[2018-01-17] MEDS: PALIPERIDONE 3 MG ER TAB (INVEGA) PO ×2 (08:50→20:30)
[2018-01-18] MEDS: PALIPERIDONE 3 MG ER TAB (INVEGA) PO ×2 (09:00→20:29)
[2018-01-19] MEDS: PALIPERIDONE 3 MG ER TAB (INVEGA) PO ×2 (08:58→21:00)
[2018-01-20] MEDS: PALIPERIDONE 3 MG ER TAB (INVEGA) PO ×2 (09:00→20:22)
[2018-01-20] MEDS: ACETAMINOPHEN TAB 650MG DOSE (2X325MG) PO (16:56)
[2018-01-21] MEDS: PALIPERIDONE 3 MG ER TAB (INVEGA) PO ×2 (09:00→21:00)
[2018-01-21] MEDS: ACETAMINOPHEN TAB 650MG DOSE (2X325MG) PO (21:25)
[2018-01-22] MEDS: PALIPERIDONE 3 MG ER TAB (INVEGA) PO ×2 (08:35→21:00)
[2018-01-23] MEDS: PALIPERIDONE 3 MG ER TAB (INVEGA) PO ×2 (09:00→21:00)
[2018-01-24] MEDS: PALIPERIDONE 3 MG ER TAB (INVEGA) PO ×2 (08:40→20:39)
[2018-01-25] MEDS: PALIPERIDONE 3 MG ER TAB (INVEGA) PO ×2 (08:50→20:01)
[2018-01-26] MEDS: PALIPERIDONE 3 MG ER TAB (INVEGA) PO (09:00)
[2018-01-26] MEDS: ACETAMINOPHEN TAB 650MG DOSE (2X325MG) PO (13:03)
[2018-01-26] MEDS ORDERED: diphenhydrAMINE 50 MG CAP PO (20:30)
[2018-01-26] MEDS: OLANZapine INTRAMUSCULAR 10 MG VIAL (S0166) IM (20:58)
[2018-01-26] MEDS: OLANZapine 5 MG TAB PO (20:59)
[2018-01-26] MEDS ORDERED: OLANZapine INTRAMUSCULAR 10 MG VIAL (S0166) IM (21:00)
[2018-01-26] MEDS ORDERED: OLANZapine 5 MG TAB PO (21:00)
[2018-01-27] MEDS: OLANZapine 5 MG TAB PO ×2 (09:00→21:00)
[2018-01-27] MEDS: OLANZapine INTRAMUSCULAR 10 MG VIAL (S0166) IM ×2 (09:32→22:05)
[2018-01-27] MEDS ORDERED: diphenhydrAMINE 50 MG CAP PO (12:00)
[2018-01-27] MEDS ORDERED: diphenhydrAMINE INJ 50MG/ML VIAL (J1200) IM (12:15)
[2018-01-28] MEDS: OLANZapine 5 MG TAB PO ×2 (09:00→21:00)
[2018-01-28] MEDS: OLANZapine INTRAMUSCULAR 10 MG VIAL (S0166) IM ×2 (09:42→21:21)
[2018-01-29] MEDS: OLANZapine 5 MG TAB PO ×2 (09:00→21:00)
[2018-01-29] MEDS: OLANZapine INTRAMUSCULAR 10 MG VIAL (S0166) IM ×2 (10:11→22:21)
[2018-01-30] MEDS: OLANZapine 5 MG TAB PO ×2 (08:56→20:50)
[2018-01-30] MEDS: OLANZapine INTRAMUSCULAR 10 MG VIAL (S0166) IM ×2 (10:06→20:50)
[2018-01-31] MEDS: OLANZapine 5 MG TAB PO ×2 (09:00→21:00)
[2018-01-31] MEDS: OLANZapine INTRAMUSCULAR 10 MG VIAL (S0166) IM ×2 (09:30→22:13)
[2018-02-01] MEDS: OLANZapine 5 MG TAB PO ×2 (09:00→21:00)
[2018-02-01] MEDS: MULTIVITAMINS/MINERALS THERAP 1 TAB PO (10:25)
[2018-02-01] MEDS: OLANZapine INTRAMUSCULAR 10 MG VIAL (S0166) IM ×2 (10:26→22:05)
[2018-02-01] MEDS: TUBERCULIN PPD 5 UNITS/0.1 ML ID (13:26)
[2018-02-01] MEDS ORDERED: PALIPERIDONE 6 MG ER TAB (INVEGA) PO (21:00)
[2018-02-02] MEDS: OLANZapine 5 MG TAB PO ×2 (09:00→20:41)
[2018-02-02] MEDS: MULTIVITAMINS/MINERALS THERAP 1 TAB PO (10:12)
[2018-02-02] MEDS: OLANZapine INTRAMUSCULAR 10 MG VIAL (S0166) IM ×2 (10:12→20:40)
[2018-02-02] MEDS: ACETAMINOPHEN TAB 650MG DOSE (2X325MG) PO (20:34)
[2018-02-03] MEDS: MAALOX 30 ML SUSP *UDC PO ×2 (05:12→22:38)
[2018-02-03] MEDS: ACETAMINOPHEN TAB 650MG DOSE (2X325MG) PO (05:13)
[2018-02-03] MEDS: OLANZapine 5 MG TAB PO ×2 (09:00→20:38)
[2018-02-03] MEDS: MULTIVITAMINS/MINERALS THERAP 1 TAB PO (09:17)
[2018-02-03] MEDS: OLANZapine INTRAMUSCULAR 10 MG VIAL (S0166) IM ×2 (09:23→20:25)
[2018-02-03] MEDS: PPD DOCUMENTATION ENTRY MISC XX (10:27)
[2018-02-03] MEDS ORDERED: MOM 30ML SUSPENSION UDC PO (22:30)
[2018-02-04] MEDS: OLANZapine 5 MG TAB PO ×2 (09:00→20:11)
[2018-02-04] MEDS: MULTIVITAMINS/MINERALS THERAP 1 TAB PO (09:48)
[2018-02-04] MEDS: OLANZapine INTRAMUSCULAR 10 MG VIAL (S0166) IM ×2 (09:48→20:11)
[2018-02-04] MEDS ORDERED: MAALOX 30 ML SUSP *UDC PO (14:15)
[2018-02-04] MEDS ORDERED: MOM 30ML SUSPENSION UDC PO (14:15)
[2018-02-04] MEDS ORDERED: OLANZapine ORAL DISINTEGRATING TAB 5MG PO (14:15)
[2018-02-04] MEDS ORDERED: ACETAMINOPHEN TAB 650MG DOSE (2X325MG) PO (14:15)
[2018-02-05] MEDS: OLANZapine 5 MG TAB PO ×2 (09:00→21:00)
[2018-02-05] MEDS: OLANZapine INTRAMUSCULAR 10 MG VIAL (S0166) IM ×2 (10:19→22:12)
[2018-02-05] MEDS: MULTIVITAMINS/MINERALS THERAP 1 TAB PO (10:19)
[2018-02-06] MEDS: OLANZapine 5 MG TAB PO ×2 (09:24→21:00)
[2018-02-06] MEDS: MULTIVITAMINS/MINERALS THERAP 1 TAB PO (09:38)
[2018-02-06] MEDS: OLANZapine INTRAMUSCULAR 10 MG VIAL (S0166) IM ×2 (09:41→21:43)
[2018-02-06] MEDS: MAALOX 30 ML SUSP *UDC PO (21:42)
[2018-02-07] MEDS: OLANZapine 5 MG TAB PO ×2 (09:00→21:00)
[2018-02-07] MEDS: MULTIVITAMINS/MINERALS THERAP 1 TAB PO (09:50)
[2018-02-07] MEDS: OLANZapine INTRAMUSCULAR 10 MG VIAL (S0166) IM ×2 (09:57→21:59)
[2018-02-07] MEDS: MAALOX 30 ML SUSP *UDC PO (19:53)
[2018-02-08] MEDS: OLANZapine 5 MG TAB PO ×2 (09:00→21:00)
[2018-02-08] MEDS: MULTIVITAMINS/MINERALS THERAP 1 TAB PO (09:28)
[2018-02-08] MEDS: OLANZapine INTRAMUSCULAR 10 MG VIAL (S0166) IM ×2 (09:29→21:24)
[2018-02-08] MEDS: MAALOX 30 ML SUSP *UDC PO (20:00)
[2018-02-09] MEDS: MULTIVITAMINS/MINERALS THERAP 1 TAB PO (09:00)
[2018-02-09] MEDS: OLANZapine 5 MG TAB PO (09:00)
[2018-02-09] MEDS: OLANZapine INTRAMUSCULAR 10 MG VIAL (S0166) IM (09:11)
== END 2018-02-09 15:23 | DRG 760 ==
LOC: M PSY 01-09 13:45 → M ED 10:06 → M ED INP 14:03 → M PSY 16:20
DX: F22 Delusional disorders (principal); F60.89 Other specific personality disorders